=== PATIENT | male | born 1990 | race Caucasian/White ===

== ENCOUNTER 2016-09-14 16:39 | Emergency (ER) | payer SELFPAY ==
[~2016-09-14 16:39] MED LIST: ABILIFY PO; DEPAKOTE PO; ELIMITE60 G1 TP; FLEXERIL PO; IBUPROFEN800 MG PO; KEFLEX PO; KEFLEX500 MG PO; TUSSIN100 MG/51 PO; VOLTAREN75 MG PO; ZITHROMAX PO
== END 2016-09-14 17:00 | disposition home or self-care (01) ==
LOC: CFTX 16:39
DX: T63.301A Toxic effect of unspecified spider venom, accidental (unintentional), initial encounter (principal); Z23 Encounter for immunization
CPT/HCPCS: 90471; 90715; 99283

== ENCOUNTER 2016-12-30 11:18 | Emergency (ER) | payer SELFPAY ==
[2016-12-30] MEDS ORDERED: NO MEDICATIONS (11:25)
== END 2016-12-30 11:59 | disposition home or self-care (01) ==
LOC: SED 11:18
DX: R21 Rash and other nonspecific skin eruption (principal); F41.9 Anxiety disorder, unspecified; F43.10 Post-traumatic stress disorder, unspecified
CPT/HCPCS: 99282

== ENCOUNTER 2017-01-10 04:20 | Emergency (ER) | payer SELFPAY ==
[~2017-01-10 04:20] MED LIST changes: +NO MEDICATIONS
[2017-01-10 05:24] LABS: URINE SOURCE CLEAN CATCH
[2017-01-10 05:36] LABS: URINE APPEARANCE SL HAZY; URINE BILIRUBIN NEG (NEG); URINE BLOOD NEG (NEG); URINE COLOR YELLOW; URINE GLUCOSE NORM (NORM); URINE KETONE NEG (NEG); URINE LEUKOCYTE ESTERASE 2+ (NEG); URINE NITRATE NEG (NEG); URINE PROTEIN NEG (NEG); URINE SPECIFIC GRAVITY 1.025 (1.003-1.035); URINE UROBILINOGEN NORM (NORM)
[2017-01-10 05:37] LABS: CULTURE INDICATED? YES; URBCS1 AUWI 0-2 /[HPF] (0-2); URINE BACTERIA AUWI NEG (NEGATIVE); URINE SQUAMOUS EPITHELIAL CELL OCC /[HPF]
[2017-01-10 05:37] LABS: BASOPHIL% 0.5 % (0-2.5); EOSINOPHIL# 0.2 X10e3 (0-0.7); EOSINOPHIL% 2.9 % (0.0-7.0); HEMATOCRIT 44.4 % (38.0-50.0); HEMOGLOBIN 14.8 gm/dL (13.0-16.0); LYMPHOCYTE# 2.1 X10e3 (1.0-3.5); MEAN CELL VOLUME 87.8 FL (83-96); MEAN CORPUSCULAR HEMOGLOBIN 29.3 PG (28-34); MEAN CORPUSCULAR HGB CONC 33.4 g/dL (30-36); MEAN PLATELET VOLUME 8.8 FL (6.5-11.5); MONOCYTE# 0.9 X10e3 (0-1.0); MONOCYTE% 12.1 % (3.0-12.0); NEUTROPHIL# 3.9 X10e3 (1.5-7.1); NEUTROPHIL% 54.5 % (40-75); PLATELET COUNT 287 X10e3 (140-420); RED BLOOD COUNT 5.05 X10e (3.90-5.60); WHITE BLOOD COUNT 7.1 X10e3 (4.0-10.5)
[2017-01-10 05:38] LABS: DIFF IND NO
[2017-01-10 05:50] LABS: U HYALINE CASTS AUWI 0-2 /[LPF]; URINE MUCUS PRESENT; UWBCS1 AUWI 25-50 (0-5)
[2017-01-10 06:01] LABS: BUN/CREATININE RATIO 22.22; CREATININE SERUM 0.9 mg/dL (0.6-1.4); GLOM FILT RATE Estimated 118.3 mL/min (>60); POTASSIUM 3.9 mmol/L (3.5-5.1)
[2017-01-11 23:39] LABS: CHLAMYDIA TRACH Not Detected (Not Detected); N GONOR Not Detected (Not Detected)
== END 2017-01-10 06:55 | disposition home or self-care (01) ==
LOC: CED 04:20
PROVIDERS: Nurse Practitioner
DX: N39.0 Urinary tract infection, site not specified (principal)
CPT/HCPCS: 36415; 80048; 81003; 85025; 87086; 87491; 87591; 96372; 99284; J0696; J1885